=== PATIENT | female | born 1960 | race Caucasian/White ===

== ENCOUNTER 2020-07-29 11:41 | Outpatient (CLI) | payer BC | END 2020-07-29 11:42 | disposition home or self-care (01) | LOC: CSHCT 11:41 | PROVIDERS: ATTEND Internal Medicine Gastroenterology | DX: R10.32 Left lower quadrant pain (principal); K21.9 Gastro-esophageal reflux disease without esophagitis; Z86.010 Personal history of colon polyps | CPT/HCPCS: 74177 ==